=== PATIENT | male | born 1955 | race Caucasian/White ===

== ENCOUNTER 2018-07-08 06:03 | Day surgery (SDC) | payer OTHER ==
[~2018-07-08] VITALS: Ht 165.1 cm; Wt 78.3 kg
[2018-07-08 06:50] VITALS: Ht 165.1 cm; Wt 78.3 kg
[2018-07-08] MEDS ORDERED: DEPRESSION MED (07:02)
[2018-07-08] MEDS ORDERED: BP MED (07:02)
[2018-07-08] MEDS ORDERED: ASPI-817 PO (07:02)
[2018-07-08] MEDS ORDERED: CALCIUM PO (07:02)
[2018-07-08 07:34] VITALS: BP 156/80; PULSE 54; RESP 18
[2018-07-08] MEDS ORDERED: FENTAnyl 50 MCG/ML VIAL ONE (09:04)
[2018-07-08] MEDS ORDERED: MIDAZOLAM 1 MG/ML 2 ML INJ ONE ×2 (09:05)
[2018-07-08 09:25] VITALS: BP 130/71; PULSE 49; RESP 15
== END 2018-07-08 15:48 | disposition home or self-care (01) ==
LOC: GIL 06:03
PROVIDERS: ATTEND Internal Medicine Gastroenterology
DX: Z12.11 Encounter for screening for malignant neoplasm of colon (principal); K64.8 Other hemorrhoids
CPT/HCPCS: 45378; J2250; J3010